=== PATIENT | female | born 1945 | race Caucasian/White ===

== ENCOUNTER 2023-01-07 07:35 | Inpatient (IN) ==
[2023-01-07] MEDS ORDERED: DUONEB NEB ONE ×2 (07:42→07:43)
[2023-01-07] MEDS ORDERED: SOLU-MEDROL 125 MG IVP ONE (07:43)
--- NOTE | 2023-01-07 07:47 | ED.PDOC ---
General ED Provider: Dr. LAURA TIRADO MD Chief Complaint: Respiratory Complaint Stated Complaint: mild to mod short of breath getting worse for 2 days, no fever, no chest pain, +wheezing, hx copd, no mi or dm Time Seen by Provider: 01/07/23 07:39 Mode of Arrival: Walk-In Information Source: Patient Nursing and Triage Documentation Reviewed and Agree: Yes Does patient meet sepsis criteria?: No System Inflammatory Response Syndrome: Not Applicable Sepsis Protocol: For patient's 13 years and over: Temp is 96.8 and below OR 101 and greater Pulse >90 BPM Resp >20/minute Acutely Altered Mental Status Are patient's symptoms suggestive of a new infection, such as: -Pneumonia -Skin, Soft Tissue -Endocarditis -UTI -Bone, Joint Infection -Implantable Device -Acute Abdominal Infection -Wound Infection -Meningitis -Blood Stream Catheter Infection -Unknown Review of Systems Review Of Systems Constitutional: Reports Weakness; Denies Fever Eyes: Denies Vision change Ears, Nose, Mouth, Throat: Denies Throat pain Respiratory: Reports Cough, Short of air and Wheezing; Denies Stridor Cardiac: Denies Chest pain GI: Denies Abdominal pain or Vomiting : Denies Frequency Musculoskeletal: Denies Back pain Skin: Denies Rash Neurological: Denies Cognitive dysfunction All Other Systems: Other Physical Exam Physical Exam Appearance: Reports Ill-appearing Ill-appearing: Mild Pain Distress: None Eyes: Reports ASHLEY, EOMI and Conjunctiva clear ENT: Reports Oropharynx normal Neck: Supple Respiratory: Reports Airway patent and Wheezes Cardiovascular: Reports RRR GI/: Reports Soft and Nontender Musculoskeletal: Reports ROM intact and No edema Skin: Reports Warm and Dry Neurological: Reports Alert and Oriented Psychiatric: Reports Affect appropriate Interpretation Radiology Interpretation Radiology Interpretation By: Radiologist Exam Interpreted: CXR Xray Comments: right hilar nodes, no consolidation EKG Interpretation Time of EKG #1: 08:43 Rate: Normal Rhythm: Sinus Interpretation: no stemi Critical Care Note Critical Care Note Total Critical Care Time (mins): 0 Course Course Hematology/Chemistry: 01/07/23 07:48 01/07/23 07:48 Orders, Labs, Meds: Lab Review 01/07/23 01/07/23 01/07/23 07:40 07:48 07:48 WBC 14.21 H RBC 4.63 Hgb 14.3 Hct 43.5 MCV 94.0 MCH 30.9 MCHC 32.9 RDW Coeff of Alfa 13.4 Plt Count 153 Immature Gran % (Auto) 0.4 Neut % (Auto) 80.2 H Lymph % (Auto) 10.7 [place] % (Auto) 8.0 Eos % (Auto) 0.1 Baso % (Auto) 0.6 Neut # (Auto) 11.4 H Lymph # (Auto) 1.5 [place] # (Auto) 1.1 Eos # (Auto) 0.0 Baso # (Auto) 0.1 Immature Gran # (Auto) 0.1 Puncture Site Rbrach Base Excess 2.9 O2 Saturation 89.6 L ABG pH 7.43 ABG pCO2 41.0 ABG pO2 56.0 L* ABG HCO3 27.2 ABG Total CO2 28.5 H [place] Test Pos Hemoglobin 0.8 Oxyhemoglobin 87.8 L Carboxyhemoglobin 1.8 H Total Hemoglobin 14.4 FiO2 % 21.0 Sodium 139.4 Potassium 3.85 Chloride 101.4 Carbon Dioxide 30.0 Anion Gap 11.85 BUN 11.9 Creatinine 0.75 Estimated GFR (MDRD) 75.00 BUN/Creatinine Ratio 15.86 Glucose 201.3 H Lactic Acid Calcium 9.07 Total Bilirubin 1.02 AST 26.8 ALT 16.5 Alkaline Phosphatase 87.6 Troponin I < 0.012 NT-Pro-B Natriuret Pep 491.000 H Total Protein 8.10 Albumin 4.63 Globulin 3.47 Albumin/Globulin Ratio 1.33 SARS CoV-2 RNA Rapid JEFFREY 01/07/23 01/07/23 07:48 07:50 WBC RBC Hgb Hct MCV MCH MCHC RDW Coeff of Alfa Plt Count Immature Gran % (Auto) Neut % (Auto) Lymph % (Auto) [place] % (Auto) Eos % (Auto) Baso % (Auto) Neut # (Auto) Lymph # (Auto) [place] # (Auto) Eos # (Auto) Baso # (Auto) Immature Gran # (Auto) Puncture Site Base Excess O2 Saturation ABG pH ABG pCO2 ABG pO2 ABG HCO3 ABG Total CO2 [place] Test Hemoglobin Oxyhemoglobin Carboxyhemoglobin Total Hemoglobin FiO2 % Sodium Potassium Chloride Carbon Dioxide Anion Gap BUN Creatinine Estimated GFR (MDRD) BUN/Creatinine Ratio Glucose Lactic Acid 1.78 Calcium Total Bilirubin AST ALT Alkaline Phosphatase Troponin I NT-Pro-B Natriuret Pep Total Protein Albumin Globulin Albumin/Globulin Ratio SARS CoV-2 RNA Rapid JEFFREY Negative Orders Category Date Time Status ABG DRAW REQUEST Stat CARDIO 01/07/23 07:43 Completed EKG-(ED ONLY) Stat CARDIO 01/07/23 07:43 Completed OXYGEN [ED APPLY O2] .ONCE EMERGENCY 01/07/23 07:43 Active ABG COOX Stat LAB 01/07/23 07:40 Completed BLOOD CULTURE Stat LAB 01/07/23 08:39 Received CBC W/ AUTO DIFF Stat LAB 01/07/23 07:48 Completed CMP [COMPREHENSIVE METABOLIC PANEL] Stat LAB 01/07/23 07:48 Completed LACTIC ACID Stat LAB 01/07/23 07:48 Completed NT-PROBNP Stat LAB 01/07/23 07:48 Completed SARS COV-2 RNA RAPID JEFFREY Stat LAB 01/07/23 07:50 Completed TROPONIN I Stat LAB 01/07/23 07:48 Completed Ipratropium/Albuterol Neb [Duoneb] MEDS 01/07/23 07:42 Discontinued 3 ml NEB .STK-MED ONE Ipratropium/Albuterol Neb [Duoneb] MEDS 01/07/23 07:43 Discontinued 3 ml NEB ONCE ONE Levofloxacin/D5w [Levaquin 750 mg/150 ml D5w] MEDS 01/07/23 08:23 Active 750 mg in 150 ml IV ONCE Methylprednisolone Sod Succ/Pf [Solu-Medrol 125 mg] MEDS 01/07/23 07:43 Discontinued 125 mg IVP ONCE ONE CHEST, 1V AP ONLY Stat RADS 01/07/23 07:43 Completed Medications Generic Name Dose Route Start Last Admin Trade Name Freq PRN Reason Stop Dose Admin Levofloxacin/Dextrose 750 mg in 150 mls @ 100 mls/hr 01/07/23 08:23 Levaquin 750 Mg/150 Ml D5w IV 01/07/23 09:52 ONCE ONE Discontinued Medications Generic Name Dose Route Start Last Admin Trade Name Freq PRN Reason Stop Dose Admin Albuterol/Ipratropium 3 ml 01/07/23 07:43 01/07/23 07:47 Ipratropium/Albuterol Vial.Neb NEB 01/07/23 07:44 3 ml ONCE ONE Administration Methylprednisolone Sodium Succinate 125 mg 01/07/23 07:43 01/07/23 07:57 Methylprednisolone Sod Succ/Pf 125 Mg/2 Ml Vial IVP 01/07/23 07:44 125 mg ONCE ONE Administration Vital Signs: Temp Pulse Resp BP Pulse Ox 01/07/23 07:35 97.1 F L 109 H 36 H 159/80 H 81 L Discharge Plan Discharge Patient Disposition: ADMITTED INPATIENT Discharge Problem: COPD exacerbation, Hypoxia Prescriptions: No Action latanoprost 0.005 % drops 1 drp BOTHEYES BEDTIME metformin 500 mg tablet 500 mg PO DAILY Label Comments: TAKE 1 TABLET BY MOUTH ONCE DAILY simvastatin 20 mg tablet 20 mg PO DAILY Label Comments: TAKE 1 TABLET BY MOUTH IN THE EVENING omeprazole 20 mg capsule,delayed release(DR/EC) 20 mg PO BID Label Comments: TAKE 1 CAPSULE BY MOUTH TWICE DAILY FOR 30 DAYS albuterol sulfate [Ventolin HFA] 90 mcg/actuation HFA aerosol inhaler 2 puff INHALATION Q4H PRN (Reason: shortness of air) Label Comments: INHALE 2 PUFFS BY MOUTH EVERY 4 HOURS NEEDED FOR 90 DAYS Spiriva Respimat 2.5 mcg/actuation Mist 2 inh INHALATION QAM Did you review [place] [employer] for ALL controlled substances?: Not Applicable ED Provider: LAURA TIRADO Condition: Stable Physician Progress Note: [] full tele admit to hospitalist
[2023-01-07 07:50] LABS: ABG O2 HGB 87.8 % (95-100); ABG PH 7.43 (7.35-7.45); BEecf 2.9 (-2.0-3.0); COHb 1.8 (0.5-1.5); HCO3 27.2 (21-28); MetHb 0.8 (0-1.5); TCO2 28.5 (19-24); sO2 89.6 % (94-98); tHb 14.4 g/dl (11.7-17.4)
[2023-01-07 07:53] LABS: BASOPHILS # (AUTO) 0.1 K/uL (0-0.2); BASOPHILS % (AUTO) 0.6 % (0.0-3.0); EOSINOPHILS % (AUTO) 0.1 % (0.0-7.0); HEMATOCRIT 43.5 % (37.0-47.0); HEMOGLOBIN 14.3 g/dl (12.0-16.0); IMMATURE GRANULOCYTE # (AUTO) 0.1 (0.0-1.0); IMMATURE GRANULOCYTE % (AUTO) 0.4 % (0.0-5.0); LYMPHOCYTES # (AUTO) 1.5 K/uL (0.60-3.4); LYMPHOCYTES % (AUTO) 10.7 (10.0-50.0); MEAN CORPUSCULAR HEMOGLOBIN 30.9 pg (27.0-31.0); MEAN CORPUSCULAR HGB CONC 32.9 (31.8-35.4); MONOCYTES # (AUTO) 1.1 K/uL (0.4-2.0); NEUTROPHILS # (AUTO) 11.4 K/ul (2.0-6.9); NEUTROPHILS % (AUTO) 80.2 % (42.2-75.2); PLATELET COUNT 153 10^3/uL (140-440); RDW COEFFICIENT OF VARIATION 13.4 % (11.6-14.8); RED BLOOD COUNT 4.63 10^6/ul (4.20-5.40); WHITE BLOOD COUNT 14.21 K/ul (4.6-10.2)
[2023-01-07 08:12] LABS: ALANINE AMINOTRANSFERASE 16.5 U/L (0-35); ALBUMIN 4.63 g/dL (3.5-5.0); ALKALINE PHOSPHATASE 87.6 U/L (53-141); ASPARTATE AMINO TRANSFERASE 26.8 U/L (14-36); BILIRUBIN,TOTAL 1.02 mg/dL (0.2-1.3); BLOOD UREA NITROGEN 11.9 mg/dL (7-17); CALCIUM 9.07 mg/dL (8.4-10.2); CHLORIDE 101.4 mmol/L (98-107); CREATININE 0.75 mg/dL (0.60-1.30); GLUCOSE 201.3 mg/dL (74-106); POTASSIUM 3.85 mmol/L (3.5-5.1); SODIUM 139.4 mmol/L (134.5-145)
--- NOTE | 2023-01-07 08:14 | DI ---
EXAM: Frontal view of the chest. HISTORY: Weakness. COMPARISON: None. FINDINGS: Normal heart size. Fullness in the right perihilar region. Atherosclerotic calcifications of the aort a. No acute consolidation. No visible pleural effusion or pneumothorax. Degenerative change of the shoulders. Multilevel spondylosis. IMPRESSION: Fullness in the right nancy may represent adenopathy. Recommend chest CT to further evaluate.
[2023-01-07] MEDS ORDERED: LEVAQUIN 750 MG/150 ML D5W 750 MG/150 ML BAG IV ONE (08:23)
[2023-01-07 08:33] LABS: TROPONIN I < 0.012 ng/ml (0.0000-0.120)
[2023-01-07 08:35] LABS: SARS COV-2 RNA RAPID NAAT NEGATIVE (NEGATIVE)
[2023-01-07] MEDS ORDERED: TYLENOL PO PRN (08:45)
[2023-01-07] MEDS ORDERED: VENTOLIN HFA (PER PUFF-WITH SPACER) IH PRN (08:48)
[2023-01-07] MEDS ORDERED: LEVAQUIN 750 MG/150 ML D5W 750 MG/150 ML BAG IV SCH (09:00)
[2023-01-07] MEDS ORDERED: NON-FORMULARY MEDICATION (Tiotropium Bromide [Spiriva Respimat] 2.5 mcg/actuation Mist) IH SCH (09:00)
[2023-01-07] MEDS ORDERED: ZOCOR PO SCH (09:00)
[2023-01-07 10:22] VITALS: BMI 23.2
--- NOTE | 2023-01-07 10:52 | RS.SLPCNOT ---
Speech Case Note Date of Note: 01/07/23 Title: Speech consult Note: RN reported speech consult was completed due to pt's history of COPD and esophageal dysphagia. The RN reported the patient has been seen by ENT and has history of esophageal dilation. She takes Protonix, but is not consistent with medication regimen and does have overt reflux symptoms without medication. At this time, due to her COPD and reflux symptoms, she is demonstrating delayed coughs with meals. RN to monitor lung sounds and for overt s/s of aspiration at the bedside intermittently with meals. AGRICULTURAL CONSULTANT and RN deemed no ST warranted at this time. Thank you for this consult.
[2023-01-07] MEDS: SOLU-MEDROL 40 MG IVP SCH ×2 (11:02→21:40)
[2023-01-07] MEDS: PRILOSEC PO SCH ×2 (11:04→16:27)
[2023-01-07] MEDS: SPIRIVA IH SCH (11:05)
[2023-01-07] MEDS: SODIUM CHLORIDE 1,000 ML IV SCH ×2 (11:05→23:49)
[2023-01-07] MEDS: ZOCOR PO SCH (21:41)
[2023-01-08] MEDS: PRILOSEC PO SCH ×2 (05:55→16:52)
[2023-01-08 06:04] LABS: BASOPHILS % (AUTO) 0.1 % (0.0-3.0); HEMATOCRIT 39.1 % (37.0-47.0); HEMOGLOBIN 12.8 g/dl (12.0-16.0); IMMATURE GRANULOCYTE # (AUTO) 0.1 (0.0-1.0); IMMATURE GRANULOCYTE % (AUTO) 0.7 % (0.0-5.0); LYMPHOCYTES # (AUTO) 1.1 K/uL (0.60-3.4); MEAN CORPUSCULAR HEMOGLOBIN 30.6 pg (27.0-31.0); MEAN CORPUSCULAR HGB CONC 32.7 (31.8-35.4); MEAN CORPUSCULAR VOLUME 93.5 fl (81.0-99.0); MONOCYTES # (AUTO) 0.5 K/uL (0.4-2.0); MONOCYTES % (AUTO) 3.3 (0-10); NEUTROPHILS # (AUTO) 14.4 K/ul (2.0-6.9); NEUTROPHILS % (AUTO) 88.9 % (42.2-75.2); PLATELET COUNT 159 10^3/uL (140-440); RDW COEFFICIENT OF VARIATION 13.2 % (11.6-14.8); RED BLOOD COUNT 4.18 10^6/ul (4.20-5.40); WHITE BLOOD COUNT 16.15 K/ul (4.6-10.2)
[2023-01-08 06:16] LABS: ALANINE AMINOTRANSFERASE 16.4 U/L (0-35); ALBUMIN 4.06 g/dL (3.5-5.0); ALKALINE PHOSPHATASE 65.5 U/L (53-141); ASPARTATE AMINO TRANSFERASE 26.2 U/L (14-36); BILIRUBIN,TOTAL 0.46 mg/dL (0.2-1.3); BLOOD UREA NITROGEN 13.9 mg/dL (7-17); CALCIUM 8.85 mg/dL (8.4-10.2); CARBON DIOXIDE 25.2 mmol/L (22-30.0); CHLORIDE 107.8 mmol/L (98-107); CREATININE 0.68 mg/dL (0.60-1.30); GLUCOSE 162.9 mg/dL (74-106); POTASSIUM 3.93 mmol/L (3.5-5.1); SODIUM 141.4 mmol/L (134.5-145); TOTAL PROTEIN 7.14 g/dL (6.3-8.2)
[2023-01-08] MEDS: SPIRIVA IH SCH (09:30)
[2023-01-08] MEDS: SOLU-MEDROL 40 MG IVP SCH ×2 (09:31→20:53)
[2023-01-08] MEDS: LEVAQUIN 750 MG/150 ML D5W 750 MG/150 ML BAG IV SCH (09:31)
[2023-01-08] MEDS: DUONEB NEB SCH ×3 (12:00→23:30)
--- NOTE | 2023-01-08 12:00 | PCM.DC ---
Final Diagnosis: Copd exacerbation Acute bronchitis Physical Exam Appearance: Well-appearing, No pain distress and Well-nourished Ill-appearing: None Pain Distress: None Eyes: ASHLEY, EOMI and Conjunctiva clear ENT: Ears normal, Nose normal and Oropharynx normal Neck: Supple Respiratory: Airway patent, Breath sounds equal, Respirations nonlabored and Wheezes (rare expiratory wheezes) Cardiovascular: RRR, Pulses normal, No rub and No murmur GI/: Soft, Nontender, No masses, Bowel sounds normal and No Organomegaly Musculoskeletal: Normal strength, ROM intact, No edema and No calf tenderness Skin: Warm, Dry and Normal color Neurological: Sensation intact, Motor intact, Reflexes intact, Cranial nerves intact, Alert and Oriented Psychiatric: Affect appropriate and Mood appropriate Reason for Hospitalization: Pt was admitted for a copd exacerbation and acute bronchitis Prognosis/Condition at Discharge: Stable and improved Medications at Discharge: Home medications Prednisone for 5 days Levaquin for 5 days Lab/Diagnostics: Pt labs were notable for a WBC of 16.5 which is likely secondary to her steroids. Chems showed a glucose of 163. The rest of her labs were unremarkable Education Provided to Patient and Family: Use the home oxygen as needed. Continue the medications to completion. Use your home nebulizer and inhaler as prescribed. Retun if your symptoms change or worsen. Follow-ups: Your primary care doctor early next week Discharge Disposition: Home Hospital Course: Pt was admitted for COPD exacerbation and bronchitis. Started on Levaquin and solumedrol. Improved quickly and was feeling much better on day of discharge. Her O2 sats were about 88-90% on room air and so she was evaluated for home O2. She was discharged with home O2, Levaquin and steroids for 5 days. Plan: 1. COPD exacerbation with hypoxia: Nebulizer threatment this morning. Evaluate for and treat with home O2 as needed. Will place on steroid mikki.. 2. Bronchitis: Take the Levaquin for 5 days to completion. Return if symptoms do not improve or worsen.
--- NOTE | 2023-01-08 13:01 | PCM.PROG ---
Date Seen by Provider: 01/08/23 Time Seen by Provider: 10:45 Subjective: Pt is feeling better and breathing easier. Has been on Levaqiuin and steroids. Denies any pain. No fevers overnight. Objective: Vitals: T=97.5 F, P=81, R=16, BW=950/82, SPO2=92 HEENT: PERRL Neck: supple Lungs: No resp distress, rare exp wheezes CVS: RRR Abdomen: soft NT Extremities: no edema Neurological: no focal findings Skin: warm and dry Lab/Tests/Diagnostic Imaging: WBC of 16.5. Glucose of 163 (1) COPD exacerbation: Status: Acute Code(s): J44.1 - Chronic obstructive pulmonary disease with (acute) exacerbation SNOMED Code(s): 718987437 (2) Hypoxia: Status: Acute Code(s): R09.02 - Hypoxemia SNOMED Code(s): 799797950 (3) Acute bronchitis: Status: Acute Code(s): J20.9 - Acute bronchitis, unspecified SNOMED Code(s): 26666786 Plan: 1. COPD exacerbation with hypoxia: Nebulizer treatment this morning. Evaluate for and treat with home O2 as needed. Still hypoxic off of O2 at 88-90% on RA. Continue steroids and add nebs Q6h. Given the hypoxia, family uncomfortable with her going home today. Will treat for one more day. Will liekly need to go home on prednisone for several more days. 2. Bronchitis: Continue Levaquin and will likely need about 5 more days at discharge.
[2023-01-08] MEDS: SODIUM CHLORIDE 1,000 ML IV SCH (15:34)
[2023-01-08] MEDS: ZOCOR PO SCH (20:53)
[2023-01-09] MEDS: SODIUM CHLORIDE 1,000 ML IV SCH (04:29)
[2023-01-09] MEDS: DUONEB NEB SCH ×2 (04:45→12:48)
[2023-01-09 05:52] LABS: BASOPHILS % (AUTO) 0.1 % (0.0-3.0); HEMATOCRIT 36.9 % (37.0-47.0); HEMOGLOBIN 11.8 g/dl (12.0-16.0); IMMATURE GRANULOCYTE # (AUTO) 0.1 (0.0-1.0); IMMATURE GRANULOCYTE % (AUTO) 0.5 % (0.0-5.0); LYMPHOCYTES % (AUTO) 7.7 (10.0-50.0); MEAN CORPUSCULAR HEMOGLOBIN 30.3 pg (27.0-31.0); MEAN CORPUSCULAR VOLUME 94.6 fl (81.0-99.0); MONOCYTES # (AUTO) 0.6 K/uL (0.4-2.0); MONOCYTES % (AUTO) 4.3 (0-10); NEUTROPHILS # (AUTO) 11.4 K/ul (2.0-6.9); NEUTROPHILS % (AUTO) 87.4 % (42.2-75.2); PLATELET COUNT 160 10^3/uL (140-440); RDW COEFFICIENT OF VARIATION 13.3 % (11.6-14.8); WHITE BLOOD COUNT 13.08 K/ul (4.6-10.2)
[2023-01-09] MEDS: PRILOSEC PO SCH (05:55)
[2023-01-09 06:12] LABS: ALBUMIN 3.53 g/dL (3.5-5.0); ALKALINE PHOSPHATASE 61.8 U/L (53-141); ASPARTATE AMINO TRANSFERASE 28.1 U/L (14-36); BILIRUBIN,TOTAL 0.3 mg/dL (0.2-1.3); BLOOD UREA NITROGEN 15.5 mg/dL (7-17); CALCIUM 8.66 mg/dL (8.4-10.2); CHLORIDE 105.6 mmol/L (98-107); CREATININE 0.73 mg/dL (0.60-1.30); GLUCOSE 164.9 mg/dL (74-106); POTASSIUM 3.91 mmol/L (3.5-5.1); SODIUM 137.3 mmol/L (134.5-145); TOTAL PROTEIN 6.29 g/dL (6.3-8.2)
--- NOTE | 2023-01-09 09:09 | PCM.PROG ---
Date Seen by Provider: 01/09/23 Time Seen by Provider: 08:50 Subjective: Patient reports breathing much better. She is anxious to go home. No complaints. She is to be evaluated for home oxygen today. Objective: Vitals: T=98.5 F, P=60, R=18, ZW=641/82, SPO2=96 Patient in good spirits. Breathing without any distress. HEENT: [] Oral mucosa moist. Neck: [] No JVD Lungs: [] A few scattered expiratory wheezes. Good air exchange. CVS: [] RRR. Abdomen: []Soft, nontender. Extremities: [] Neurological: [] Skin: [] Lab/Tests/Diagnostic Imaging: [] (1) COPD exacerbation: Status: Acute Code(s): J44.1 - Chronic obstructive pulmonary disease with (acute) exacerbation SNOMED Code(s): 222140531 (2) Hypoxia: Status: Acute Code(s): R09.02 - Hypoxemia SNOMED Code(s): 057529364 Assessment: To be evaluated for home oxygen prior to discharge. (3) Acute bronchitis: Status: Acute Code(s): J20.9 - Acute bronchitis, unspecified SNOMED Code(s): 44682684 Assessment: Much improved. Plan: Patient to be discharged after evaluation and arrangements for home oxygen completed. Will discharge on levaquin and medrol dose mikki. Needs an outpatient chest CT to evaluate hilar prominence on the right side.
[2023-01-09] MEDS: LEVAQUIN 750 MG/150 ML D5W 750 MG/150 ML BAG IV SCH (09:42)
[2023-01-09] MEDS: SOLU-MEDROL 40 MG IVP SCH (09:43)
[2023-01-09] MEDS: SPIRIVA IH SCH (09:46)
--- NOTE | 2023-01-09 13:17 | PCM.DC ---
Final Diagnosis: acute bronchitis COPD exacerbation hypoxia Physical Exam Appearance: No pain distress, Well-nourished and Other (No respiratory distress.) Ill-appearing: Mild Pain Distress: None Eyes: Not Examined ENT: Nose normal and Oropharynx normal Neck: Supple Respiratory: Airway patent, Breath sounds clear and Breath sounds equal Cardiovascular: RRR, No rub and No murmur GI/: Soft, Nontender, No masses and Bowel sounds normal Musculoskeletal: Normal strength, ROM intact and No edema Skin: Warm, Dry and Normal color Neurological: Motor intact, Alert and Oriented Psychiatric: Affect appropriate and Mood appropriate (1) COPD exacerbation: Status: Acute Code(s): J44.1 - Chronic obstructive pulmonary disease with (acute) exacerbation SNOMED Code(s): 072686944 (2) Hypoxia: Status: Acute Code(s): R09.02 - Hypoxemia SNOMED Code(s): 640964460 (3) Acute bronchitis: Status: Acute Code(s): J20.9 - Acute bronchitis, unspecified SNOMED Code(s): 07714887 Reason for Hospitalization: Patient admitted with dyspnea related to acute broncitis and hypoxia. Prognosis/Condition at Discharge: Condition at discharge was stable. Medications at Discharge: Patient discharged on levaquin and a medrol dose mikki in addition to the same admission medications. Lab/Diagnostics: CXR without infiltrate, effusion Education Provided to Patient and Family: Bronchitis. Home oxygen. Follow-ups: Follow up with your primary care provider early next week. Discharge Disposition: Home Hospital Course: Patient received IV antibiotics, IV steroids and nebulizer treatments. She also received supplemental oxygen. Arrangements were made for her to have home oxygen prior to discharge. Plan: Follow up with primary care provider next week.
[2023-01-09 14:06] VITALS: BP 120/71; TEMP 97.9
== END 2023-01-09 15:25 | disposition home or self-care (01) | DRG 192 ==
LOC: ED 07:35 → MEDSURG A 08:58
PROVIDERS: ADMIT Emergency Medicine Emergency Medical Services; ATTEND Surgery
DX: R13.14 Dysphagia, pharyngoesophageal phase; Z79.899 Other long term (current) drug therapy; Z20.822 Contact with and (suspected) exposure to COVID-19; J44.1 Chronic obstructive pulmonary disease with (acute) exacerbation; R53.1 Weakness